=== PATIENT | male | born 1955 | race Caucasian/White ===

== ENCOUNTER 2017-06-08 13:43 | Outpatient (CLI) | payer OTHER ==
[~2017-06-08 13:43] MED LIST: Gadobenate Dimeglumine 529 MG/1 ML (20ML VIAL) ONE
[2017-06-08 14:15] LABS: Estimated GFR-MDRD - POC Greater than 90
--- NOTE | 2017-06-08 16:15 | MRI ---
1217 MR OF THE PELVIS WITH AND WITHOUT CONTRAST 06/08/17 INDICATION: History of prostate cancer status post prostate biopsy in March 2017. TECHNIQUE: Multiplanar and multisequence MR images were obtained of the pelvis with and without IV contrast util izing a prostate specific protocol. Patient received 18 mL of Multihance for the examination. No comp arisons are available. FINDINGS: The prostate measures 5.7 x 3.7 x 4.1 cm. The total prostatic volume is 44.96 mL. No focal area of abnormal signal intensity is seen within the peripheral zone on the ADC or diffusio n weighted images. There is no suspicious T2 signal abnormality seen within the transitional zone, or fibromuscular stroma. No abnormal lymphadenopathy is grossly evidence. No abnormal enhancement is evident. No free fluid i s demonstrated. No definite marrow signal abnormality is grossly evident. IMPRESSION: PI-RADS category 2 - low (clinically significant cancer is unlikely to be present). POS: NICOLA
== END 2017-06-08 13:44 | disposition home or self-care (01) ==
LOC: TBSIIMAG 13:43
PROVIDERS: ATTEND Urology
DX: C61 Malignant neoplasm of prostate (principal)
CPT/HCPCS: 36415; 72197; 84153; A9579

== ENCOUNTER 2017-11-19 13:35 | Outpatient (CLI) | payer OTHER ==
--- NOTE | 2017-11-20 11:40 | MRI ---
MRI OF THE PELVIS/PROSTATE WITHOUT AND WITH CONTRAST: Comparison: 06-08-17 History: Prostate cancer. Prior prostate biopsy in February 2017. Technique: Multiplanar, multisequence MRI images were obtained of the prostate without and with IV co ntrast. This exam was worked up on a [employer] workstation. FINDINGS: This exam is limited secondary to motion artifact. There is moderate hypertrophy of the central gland consistent with BPH. There is minimal peripheral zone digitalized. In the left aspect of the mid gla nd of the prostate, there is a 1.6 cm area of T2 hypodensity along the anterior aspect of the gland. This has a slightly obscured margin but this may be secondary to the motion artifact. No other abnorm alities are seen on the T2 images within the prostate. No restricted diffusion is seen within the pro state. No suspicious enhancement is seen within the prostate, particularly in the region of potential concern. No pelvic adenopathy is appreciated. No marrow signal abnormality is present. The seminal vesicles ap pear intact. The neural vascular bundles are intact. IMPRESSION: There is a lesion in the anterior aspect of the mid gland of the prostate which would be either PIRAD S 2 or PIRADS category 3 abnormality. This lesion could also be artifactual as significant motion art ifact is seen on this examination. POS: NICOLA
== END 2017-11-19 13:36 | disposition home or self-care (01) ==
LOC: TBSIIMAG 13:35
PROVIDERS: ATTEND Urology
DX: C61 Malignant neoplasm of prostate (principal)
CPT/HCPCS: 72197; A9579

== ENCOUNTER 2017-11-30 13:36 | Outpatient (CLI) | payer OTHER ==
[2017-11-30 15:18] LABS: Hemoglobin 15.9 g/dL (14.0-18.0); Mean Corpuscular HGB CONC 35.2 g/dL (32.0-36.0); Mean Corpuscular Hemoglobin 33.7 pg (27.0-31.0); Mean Corpuscular Volume 95.7 fL (78.0-98.0); Mean Platelet Volume 6.6 fL (7.4-10.4); Platelet Count 167 thou/uL (130-400); RBC Distribution Width 11.4 % (11.5-14.5); Red Blood Cell (RBC) Count 4.72 mill/uL (4.70-6.10); White Blood Cell (WBC) Count 6.6 thou/uL (4.8-10.8)
[2017-11-30 15:22] LABS: PTT 26.8 SEC (22.9-36.1); Prothrombin Time 12.9 SEC (12.0-14.7)
[2017-11-30 15:26] LABS: Bilirubin Negative (Negative); Blood, Urine Negative (Negative); Clarity CLOUDY (Clear); Glucose, Urine (Dipstick) Negative (Negative); Leukocyte Small (Negative); Nitrite Positive (Negative); Protein, Urine (Dipstick) Negative (Neg-Trace); Specific Gravity, Urine 1.009 (1.002-1.036); Urobilinogen 0.2 mg/dL (0.2-1.0); pH, Urine 6.5 (5.0-9.0)
[2017-11-30 15:28] LABS: Bacteria/HPF Rare-Few HPF (None Seen); Hyaline Casts/LPF 0-3 HYALINE CAST LPF (0-3 Hyaline); Squamous Epithelial None Seen HPF (0-3)
[2017-11-30 15:39] LABS: Anion Gap 15 mmol/L (10-20); BUN (Urea Nitrogen) 8 mg/dL (8.4-25.7); Calc. Creatinine Clearance 0 mL/min (70-130); Calcium 9.3 mg/dL (7.8-10.44); Carbon Dioxide 27 mmol/L (23-31); Chloride 102 mmol/L (98-107); Estimated GFR-MDRD Greater than 90; Glucose 91 mg/dL (80-115); Potassium 4.1 mmol/L (3.5-5.1); Sodium 140 mmol/L (136-145)
== END 2017-11-30 13:37 | disposition home or self-care (01) ==
LOC: LABBT 13:36
PROVIDERS: ATTEND Urology
DX: Z01.812 Encounter for preprocedural laboratory examination (principal); C61 Malignant neoplasm of prostate
CPT/HCPCS: 80048; 81001; 85027; 85610; 85730; 87077; 87086; 87186

== ENCOUNTER 2017-12-06 08:39 | Day surgery (SDC) | payer OTHER ==
[2017-11-30 14:15] VITALS: BMI 28.5
[2017-12-06] MEDS ORDERED: Sodium Chloride 0.9% 100 ML ONE ×2 (11:39→11:42)
[2017-12-06] MEDS ORDERED: cefTRIAXone\\ROCEPHIN 1 GM VIAL ONE ×2 (11:39→11:42)
[2017-12-06] MEDS ORDERED: PROPOFOL 20 ML ONE (11:41)
[2017-12-06] MEDS ORDERED: Fentanyl 100 MCG/2 ML VIAL ONE (11:41)
[2017-12-06] MEDS ORDERED: Bupivacaine 0.25% HCL 30 ML VIAL ONE (12:06)
[2017-12-06] MEDS ORDERED: ePHEDrine/0.9% NaCl/PF SYRINGE 50 mg/10 ml ONE (12:49)
[2017-12-06] MEDS ORDERED: PHENYLEPHRINE-NS 100 MCG/ML 10 ML SYRINGE ONE (12:49)
[2017-12-06] MEDS ORDERED: PROPOFOL 200 MG/20 ML VIAL ONE (12:49)
--- NOTE | 2017-12-06 13:46 | OP ---
DATE OF PROCEDURE: 12/06/2017 SERVICE: Urology. SURGEON: Lawrence Lobo M.D. PREOPERATIVE DIAGNOSIS: Prostate cancer. POSTOPERATIVE DIAGNOSIS: Prostate cancer. PROCEDURE PERFORMED: MRI/ultrasound fusion transrectal ultrasound-guided biopsy. INDICATIONS FOR PROCEDURE: Mr. Messina is a 62-year-old white male who currently has been diagnosed wit h [place] 3+3 prostate cancer in one core. He has already undergone 2 biopsies which demonstrated no progression of his cancer. His PSA remains low at 1.68. He had an MRI recently which demonstrated a BI-RADS 2 lesion of low risk. He elected to go for MRI fusion biopsy for more adequate staging to ensure that he does not have any evidence of pathologic progression. Risks and benefits of biopsy be en discussed and he has agreed to proceed forward. He has done all of his prep as instructed. DESCRIPTION OF PROCEDURE: After identification of arm band and verification of consent, the patient was brought back to the operating room. He underwent TIVA with positioning the left lateral decubitu s position. The ultrasound MRI fusion machine was positioned over the patient's rectum and an ultras ound sweep was performed. The fusion process was not optimal as the MRI was extremely distorted and there was a significant amount of motion artifact. Despite this, the best benefits advisor was used and we did get some overlay between the prostate and ultrasound, there was a hypoechoic lesion which coincid ed very closely with the area seen on MRI and therefore approximately 4 biopsies were taken of this s ite, some using the targeted markers from the MRI targeted ultrasound and some taken directly through the ultrasound lesion. After this, a standard 12-core template biopsy was done in the regular fashi on. The ultrasound probe was removed. The patient was awakened and taken to PACU for recovery in st able condition. COMPLICATIONS: None. ESTIMATED BLOOD LOSS: Minimal. RETAINED TUBES AND DRAINS: None. SPECIMENS: Prostate biopsies. DISPOSITION: The patient will be discharged home and follow up with me in 1-2 weeks for biopsy resul ts.
--- NOTE | 2017-12-09 23:11 | EKG ---
Test Reason : PREOP Blood Pressure : / mmHG Vent. Rate : 066 BPM Atrial Rate : 066 BPM P-R Int : 172 ms QRS Dur : 096 ms QT Int : 380 ms P-R-T Axes : -20 031 035 degrees QTc Int : 398 ms Normal sinus rhythm Normal ECG When compared with ECG of 21-AUG-2005 12:49, Incomplete right bundle branch block is no longer Present Confirmed by Guanaco GONZALEZ ([id number]) on 12/09/2017 11:10:47 PM Referred By: SKY Confirmed By:Guanaco GONZALEZ
== END 2017-12-06 14:00 | disposition home or self-care (01) ==
LOC: SDC 08:39
PROVIDERS: ATTEND Urology
PROC: 0VB03ZX Excision of Prostate, Percutaneous Approach, Diagnostic (ICD-10-PCS; principal; 2017-12-06)
DX: C61 Malignant neoplasm of prostate (principal); N41.0 Acute prostatitis; Z79.899 Other long term (current) drug therapy; Z79.82 Long term (current) use of aspirin
CPT/HCPCS: 88305; 93005; 93010; J0696; J2704; J3010; J7050; S0020

== ENCOUNTER 2018-04-03 11:26 | Outpatient (CLI) | payer OTHER ==
--- NOTE | 2018-04-03 12:57 | RAD ---
LUMBAR SPINE TWO VIEWS: History: 62-year-old male with history of spondylosis without myelopathy. Back pain for years. FINDINGS: Mild levoscoliosis. Minimal vertical height loss of L1. Generalized disc osteophytosis and facet arth rosis. IMPRESSION: Spondylosis with disc osteophytosis and facet arthrosis. Mild vertical height loss of L1 which appear s old. POS: ANA MARÍA
[2018-04-04 19:32] LABS: ANA Symphony (Qualitative) Negative (Negative); CCP IgG Antibody 1.1 EliAU/mL (<7 Negative); EliA RAS New Method **** NEW METHOD ****; Rheumatoid Factor IgA Antibody 7.1 IU/mL (<14 Negative); Rheumatoid Factor IgM Antibody Less than 0.5 IU/mL (<3.5 Negative); dsDNA IgG Antibody 1.2 IU/mL (<10 Negative)
== END 2018-04-03 11:27 | disposition home or self-care (01) ==
LOC: SCSRAD 11:26
PROVIDERS: ATTEND Internal Medicine Rheumatology
DX: M06.4 Inflammatory polyarthropathy (principal); M47.819 Spondylosis without myelopathy or radiculopathy, site unspecified; M25.78 Osteophyte, vertebrae
CPT/HCPCS: 36415; 72100; 82306; 82310; 83520; 83970; 86038; 86200; 86225